=== PATIENT | female | born 2000 | race Caucasian/White ===

== ENCOUNTER 2023-10-27 03:22 | Emergency (ER) | payer SELFPAY ==
[2023-10-27] MEDS: Ibuprofen 600 MG Tab PO ONE (04:18)
[2023-10-27] MEDS: hydrOXYzine HCl 25 MG Tab PO ONE (04:36)
== END 2023-10-27 08:58 | disposition home or self-care (01) ==
LOC: JP.ED 03:22
DX: S00.33XA Contusion of nose, initial encounter (principal); F10.129 Alcohol abuse with intoxication, unspecified; Y90.1 Blood alcohol level of 20-39 mg/100 ml; Z79.899 Other long term (current) drug therapy; Y04.8XXA Assault by other bodily force, initial encounter
CPT/HCPCS: 36415; 80307; 99285; A9270